=== PATIENT | female | born 1940 | race Asian ===

== ENCOUNTER → 2019-08-07 | Outpatient (CLI) | payer MEDICAID ==
[2015-10-22 17:14] VITALS: BP 193/95
[~2019-08-07] MED LIST: AMLO2.5T2 PO; ASPI-612 PO; CLOP75TA PO; GLIM2TAB7 PO; HYDR-2145 PO; METF-658 PO; TRAM50TA PO
--- NOTE | 2019-08-07 10:52 | CARD ---
MR#: [id number] Date of Study: 08/07/2019 Ordering Physician: PANCHITO REYES, Referring Physician: PANCHITO REYES, Tech: Michelle Stearns [facility] APPROVED REPORT EXAM: Two-dimensional and M-mode echocardiogram with Doppler and color Doppler. Other Information Quality : Good INDICATION Cardiac Disease: CAD Status/Post MD RISK FACTORS Hypertension 2D DIMENSIONS RVDd2.4 (2.9-3.5cm)Left Atrium(2D)3.0 (1.6-4.0cm) IVSd1.2 (0.7-1.1cm)Aortic Root(2D)2.5 (2.0-3.7cm) LVDd3.9 (3.9-5.9cm)LVOT Diameter1.9 (1.8-2.4cm) PWd1.2 (0.7-1.1cm)LVDs1.9 (2.5-4.0cm) FS (%) 30.0 %SV54.2 ml LVEF(%)60.0 (>50%) Aortic Valve AoV Peak Angel.133.3cm/sAoV VTI28.5cm AO Peak GR.7.1mmHgLVOT Peak Angel.119.0cm/s AO Mean GR.4mmHgAVA (VMAX)2.58cm2 MIRTHA (VTI)2.60cm2 Mitral Valve MV E Exchqyhk26.9cm/sMV DECEL PAQB872rf MV A Jwcawfyn519.1cm/sE/A Ratio0.6 Tricuspid Valve TR P. Edddxfta754mx/sRAP [id number] TR Peak Gr.04byKrGPWJ63alYf Pulmonary Vein S1 Oodbmlnd68.9cm/sD2 Ipwnyghn49.2cm/s LEFT VENTRICLE The left ventricle is normal size. There is mild concentric left ventricular hypertrophy. The left ve ntricular systolic function is normal. The Ejection Fraction is 55-60%. There is normal LV segmental wall motion. Transmitral Doppler flow pattern is Grade I-abnormal relaxation pattern. RIGHT VENTRICLE The right ventricle is normal size. The right ventricular systolic function is normal. ATRIA The left atrium size is normal. The right atrium size is normal. The interatrial septum is intact wit h no evidence for an atrial septal defect or patent foramen ovale as noted on 2-D or Doppler imaging. AORTIC VALVE The aortic valve is calcified but opens well. Doppler and Color Flow revealed no significant aortic r egurgitation. There is no significant aortic valvular stenosis. MITRAL VALVE The mitral valve is normal in structure and function. There is no evidence of mitral valve prolapse. There is no mitral valve stenosis. Doppler and Color-flow revealed trace to mild mitral regurgitation . TRICUSPID VALVE The tricuspid valve is normal in structure and function. Doppler and Color Flow revealed trace tricus pid regurgitation. The PA pressure was estimated at 23 mmHg. There is no tricuspid valve stenosis. PULMONIC VALVE The pulmonary valve is normal in structure and function. Doppler and Color Flow revealed mild pulmoni c valvular regurgitation. There is no pulmonic valvular stenosis. GREAT VESSELS The aortic root is normal in size. The ascending aorta is normal in size. The IVC is normal in size a nd collapses >50% with inspiration. PERICARDIAL EFFUSION There is no evidence of significant pericardial effusion. Critical Notification Critical Value: No <Conclusion> The left ventricular systolic function is normal. The Ejection Fraction is 55-60%. There is normal LV segmental wall motion. Transmitral Doppler flow pattern is Grade I-abnormal relaxation pattern. Trace to mild mitral regurgitation. Trace tricuspid regurgitation. The PA pressure was estimated at 23 mmHg. There is no evidence of significant pericardial effusion. Signed by : Ivan Thomas, Electronically Approved : 08/07/2019 10:52:20
== END | disposition home or self-care (01) ==
LOC: ECHO 09:49
PROVIDERS: ATTEND Internal Medicine Cardiovascular Disease
DX: I08.8 Other rheumatic multiple valve diseases (principal); I25.10 Atherosclerotic heart disease of native coronary artery without angina pectoris; I25.2 Old myocardial infarction
CPT/HCPCS: 93306

== ENCOUNTER 2019-11-16 01:47 | Emergency (ER) | payer MEDICAID ==
[~2019-11-16] VITALS: Ht 144.8 cm; Wt 45.5 kg
[~2019-11-16 01:47] MED LIST changes: -ASPI-612 PO; +ASPI-886 PO
[2019-11-16] MEDS ORDERED: IV NORMAL SALINE 500ML BAG 500 ML IV ONE (03:00)
[2019-11-16] MEDS ORDERED: MAG HYDROX/ALUMINUM HYD/SIMETH 30 ML ORAL.SUSP PO ONE (03:00)
[2019-11-16] MEDS ORDERED: FAMOTIDINE 20 MG TABLET. PO ONE (03:00)
--- NOTE | 2019-11-16 03:00 | PHYS DOC ---
Past Medical History Past Medical History: Diabetes-Type II, Hypertension, Other Additional Past Medical Histor: HEART ATTACK Past Surgical History: Cholecystectomy Smoking Status: Never Smoker Alcohol Use: None Drug Use: None General Adult EDM: Chief Complaint: CHEST PAIN HPI: HPI: Patient is a 79 year old female who presents with chest pain. The patient is a pleasant female who is brought in by her concerned family member. The history is taken through her grandson who acts as a manager of data. They report that she started having pain on Saturday morning and that the pain is persisted throughout the day and this evening. She describes the pain as constant, nonradiating, pain that she is unable to describe. Again it is constant and nonradiating. She reports that it is not at all like what she had when she had her heart attack. She also denies shortness of breath, cough, fever, chills, sweats, nausea, vomiting diaphoresis. In addition she denies any change in exercise tolerance. Patient was active all day on Saturday and even with maximum activity she had no change in her pain. Review of Systems: Review of Systems: Constitutional: Denies fever or chills. [] Eyes: Denies change in visual acuity. [] HENT: Denies nasal congestion or sore throat. [] Respiratory: Denies cough or shortness of breath. [] Cardiovascular: See HPI. [] GI: Denies abdominal pain, nausea, vomiting, bloody stools or diarrhea. [] : Denies dysuria. [] Musculoskeletal: Denies back pain or joint pain. [] Integument: Denies rash. [] Neurologic: Denies headache, focal weakness or sensory changes. [] Endocrine: Denies polyuria or polydipsia. [] Lymphatic: Denies swollen glands. [] Psychiatric: Denies depression or anxiety. [] Heart Score: Risk Factors: Risk Factors: DM, Current or recent (<one month) smoker, HTN, HLP, family history of CAD, obesity. Risk Scores: Score 0 - 3: 2.5% MACE over next 6 weeks - Discharge Home Score 4 - 6: 20.3% MACE over next 6 weeks - Admit for Clinical Observation Score 7 - 10: 72.7% MACE over next 6 weeks - Early Invasive Strategies Allergies: Allergies: Allergies Coded Allergies Type Severity Reaction Last Updated Verified No Known Drug Allergies 09/22/15 No Physical Exam: PE: Constitutional: Well developed, well nourished, no acute distress, non-toxic appearance. [] HENT: Normocephalic, atraumatic, bilateral external ears normal, oropharynx moist, no oral exudates, nose normal. [] Eyes: PERRLA, EOMI, conjunctiva normal, no discharge. [] Neck: Normal range of motion, no tenderness, supple, no stridor. [] Cardiovascular:Heart rate regular rhythm, grade 2/6 systolic murmur, no shift of PMI, pulses 1/2 dorsalis pedis bilaterally [] Lungs & Thorax: Bilateral breath sounds clear to auscultation [] Abdomen: Bowel sounds normal, soft, no tenderness, no masses, no pulsatile masses. [] Skin: Warm, dry, no erythema, no rash. [] Back: No tenderness, no CVA tenderness. [] Extremities: No tenderness, no cyanosis, no clubbing, ROM intact, no edema. [] Neurologic: Alert and oriented X 3, normal motor function, normal sensory function, no focal deficits noted. [] [] Current Patient Data: Vital Signs: Vital Signs Date Time Temp Pulse Resp B/P (MAP) Pulse Ox O2 Delivery O2 Flow Rate FiO2 11/16/19 01:55 98.0 80 18 150/117 (128) 98 Room Air 98.0 EKG: EKG: Heart rate is 79 bpm, normal sinus rhythm, normal intervals, normal axis, comparison was made to ECG dated 09/21 without any significant changes. Abnormal ECG [] Radiology/Procedures: Radiology/Procedures: [] Course & Med Decision Making: Course & Med Decision Making Pertinent Labs and Imaging studies reviewed. (See chart for details) 0501-patient was seen and examined. Patient was reevaluated. Patient reports that her pain is almost completely resolved with the medications rendered here in the emergency department. I gave the patient some clonidine for his some elevated blood pressure but I do not think that this is the cause of her chest pain since she just received the medicine and her pain is almost gone. In addition there is been no evidence of an exigent medical or surgical problem. I discussed reasons to return, treatment plan and need for follow-up. [] [place]on Disclaimer: Anna Disclaimer: This electronic medical record was generated, in whole or in part, using a voice recognition dictation system. 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 Justicifation of Admission Dx: Justifications for Admission: Justification of Admission Dx: N/A CODI PEREZ MD Nov 16, 2019 03:00
[2019-11-16 03:18] LABS: BASO # 0.1 x10^3/uL (0.0-0.2); BASO % 1 % (0-3); EOS # 0.1 x10^3/uL (0.0-0.7); EOS % 2 % (0-3); HEMOGLOBIN 13.9 g/dL (12.0-15.5); LYMPH # 3.1 x10^3/uL (1.0-4.8); LYMPH % 35 % (24-48); MEAN CORPUSCULAR HEMOGLOBIN 31 pg (25-35); MEAN CORPUSCULAR HGB CONC 35 g/dL (31-37); MEAN CORPUSCULAR VOLUME 88 fL (79-100); MONO # 0.8 x10^3/uL (0.0-1.1); MONO % 9 % (0-9); NEUT # 4.6 x10^3/uL (1.8-7.7); NEUT % 53 % (31-73); PLATELET COUNT 107 x10^3/uL (140-400); RED BLOOD COUNT 4.53 x10^6/uL (3.50-5.40); RED CELL DISTRIBUTION WIDTH 12.8 % (11.5-14.5); WHITE BLOOD COUNT 8.7 x10^3/uL (4.0-11.0)
[2019-11-16 03:29] LABS: CREATININE 0.8 mg/dL (0.6-1.0); GFR 69.6
--- NOTE | 2019-11-16 03:31 | RAD ---
AP Chest x-ray HISTORY: Chest pain. COMPARISON: Chest x-ray September 22, 2015. FINDINGS: Mild cardiomegaly stable. Aortic arch calcified plaque. No pneumothorax. No pleural effusions. No pulmonary opacities. Mild prominence of the pulmonary vasculature similar to the prior exam, mild pulmonary vascular congestion is possible. Bones are unremarkable. IMPRESSION: No acute process. Stable exam. Electronically signed by: Lars Park MD (11/16/2019 3:28 AM) [facility]
[2019-11-16 03:34] LABS: PARTIAL THROMBOPLASTIN TIME 36 SEC (24-38); PROTHROMBIN TIME PATIENT 13.2 SEC (11.7-14.0)
[2019-11-16 03:35] LABS: ALBUMIN 3.3 g/dL (3.4-5.0); TOTAL BILIRUBIN 0.2 mg/dL (0.2-1.0); TOTAL PROTEIN 6.5 g/dL (6.4-8.2)
[2019-11-16 03:37] LABS: D-DIMER < 0.27 ug/mlFEU (0.00-0.50)
[2019-11-16] MEDS ORDERED: cloNIDine HCL 0.1 MG TABLET PO ONE (04:30)
[2019-11-16 05:06] VITALS: BP 163/82
--- NOTE | 2019-11-16 07:54 | EKG ---
[facility] [address] [place] [address] Test Date: 2019-11-16 Test Time: 02:11:13 Pat Name: FITO EVANS Department: Room: Gender: F Health Information Manager: : 1940 Requested By: CODI PEREZ Order Number: [id number] Reading MD: Measurements Intervals [place] Rate: 79 P: 28 CA: 172 QRS: 24 QRSD: 84 T: 19 QT: 364 QTc: 418 Interpretive Statements SINUS RHYTHM QRS(T) CONTOUR ABNORMALITY CONSIDER ANTEROSEPTAL MYOCARDIAL DAMAGE POSSIBLY ABNORMAL ECG RI6.01 No previous ECG available for comparison
== END 2019-11-16 05:17 | disposition home or self-care (01) ==
LOC: ER 01:47
DX: K21.9 Gastro-esophageal reflux disease without esophagitis (principal); R07.89 Other chest pain; E11.9 Type 2 diabetes mellitus without complications; I10 Essential (primary) hypertension; Z90.49 Acquired absence of other specified parts of digestive tract
CPT/HCPCS: 36415; 71046; 80053; 84484; 85025; 85379; 85610; 85730; 93005; 96360; 99285; J7040

== ENCOUNTER → 2021-08-17 | Outpatient (CLI) | payer MEDICAID ==
--- NOTE | 2021-08-17 10:05 | KCIC ---
EXAM: Pelvis sonogram. HISTORY: Postmenopausal bleeding. TECHNIQUE: Sonographic imaging of the pelvis was performed. COMPARISON: None. FINDINGS: The uterus measures 6.6 x 4.5 x 2.0 cm. There is a 2.2 cm partially calcified uterine fibro id within the right superior uterine fundus. The endometrial stripe measures 1.5 mm in thickness. The ovaries are obscured. No adnexal mass or cyst is seen. There is no pelvic free fluid. IMPRESSION: 1. 2.2 cm right uterine fibroid. 2. Thin endometrium. 3. Obscured ovaries. No adnexal lesion is seen. Electronically signed by: Kateryna Mcadams MD (08/17/2021 10:02 AM) [id number]
== END ==
LOC: KCIC US 08:36
PROVIDERS: ATTEND Family Medicine
DX: D25.9 Leiomyoma of uterus, unspecified (principal); N95.0 Postmenopausal bleeding
CPT/HCPCS: 76856